=== PATIENT | female | born 1940 | race Caucasian/White ===

== ENCOUNTER 2016-09-22 12:49 | Inpatient (IN) | payer OTHER, MEDICARE ==
[~2016-09-22] VITALS: Ht 157.5 cm; Wt 83.4 kg
[~2016-09-22 12:49] MED LIST: ADVAIR 500/501 DISK IH; ADVAIR HFA120 INHAL1 IH; AMBIEN10 MG PO; ARMOUR THYROID60 M1 PO; AZITHROMYCIN250 MG1 PO; CEFDINIR300 MG PO; ERGOCALCIF50000 UNIT PO; GLIMEPIRIDE1 MG PO; HYDROCODON-ACE1 EAC7 PO; IRON325 M1 PO; LOSARTAN POTASS50 MG PO; LOVENOX40 MG/0.4 SC; MUCINEX600 MG PO; NORVASC5 MG PO; OMEPRAZOLE20 MG PO; OXYCODONE-APAP1 EACH PO; PRAVASTATIN SOD40 MG PO; PREDNISONE20 MG PO; PREMARIN0.625 MG PO; PREVACID30 MG PO; PROAIR HFA8.5 GM IH; PROZAC40 MG PO; TRIAMTERENE-HC1 EACH PO; TUDORZA PRESS400 MCG IH; VIMOVO 500-201 EAC1 PO; VITAMIN D50000 UNI4 PO; ZOCOR20 MG PO
[2016-09-22 14:12] LABS: MEAN PLAT.VOLUME 10.9 uM^3 (9.5-12.4); PLATELET COUNT 292 K/uL (156-360)
[2016-09-22 14:20] LABS: HEMATOCRIT 31.5 % (36.0-46.0); MCH 26.6 PG (29.0-34.0); MCHC 31.1 G/DL (30.0-36.0); MCV 85.6 FL (83-99); RBC DIS.WIDTH-SD 42.5 % (39-53); RED BLOOD COUNT 3.68 M/uL (3.80-5.20)
[2016-09-22 14:21] LABS: CHLORIDE 98 mEq/L (99-109); POTASSIUM 3.5 mEq/L (3.7-5.4); SODIUM 136 mEq/L (136-147); WHITE BLOOD COUNT 35.6 K/uL (4.1-10.2)
[2016-09-22 14:24] LABS: GLUCOSE 211 mg/dL (70-99)
[2016-09-22 14:25] LABS: ANION GAP 14 MEQ/L (2-14); TOTAL BILIRUBIN 0.5 mg/dL (0.0-1.0)
[2016-09-22 14:27] LABS: ALKALINE PHOSPHATASE 145 IU/L (3-129); GFR ESTIMATE (CALCULATED) 51 mL/min/
[2016-09-22 14:28] LABS: UREA NITROGEN (BUN) 17 mg/dL (9-23)
[2016-09-22 15:44] LABS: ADD MIUA? YES; BILIRUBIN NEGATIVE; BLOOD NEGATIVE; COLOR AMBER ((YELLOW)); GLUCOSE (STRIP) 50; KETONES NEGATIVE; LEUKOCYTES NEGATIVE; NITRITE NEGATIVE; PROTEIN (STRIP) 100; UROBILINOGEN 0.2 MG/DL (0.2-1.0)
[2016-09-22 15:50] LABS: BACTERIA RARE /HPF; EPITHELIAL CELLS 1+ /HPF; HYALINE CASTS 0-5 /LPF; MUCUS TRACE /LPF; RED BLOOD CELLS 0-5 /HPF (0-5); UCUL ADDED? NO; WHITE BLOOD CELLS 0-5 /HPF (0-5)
[2016-09-22] MEDS ORDERED: LEVO-T100 MCG PO (16:56)
[2016-09-22 17:46] LABS: EOSINOPHIL (%) 0 % (0-5); HEMATOLOGY COMMENT 1 SMEAR COMPATIBLE; IMMATURE GRANULOCYTE (%) 0.6 % (0.0-0.7); IMMATURE GRANULOCYTE COUNT 0.2 K/uL; LYMPHOCYTE COUNT 1.1 K/uL (1.0-2.8); MONOCYTE (%) 4.9 % (3-12); MONOCYTE COUNT 1.7 K/uL (0-0.8); NEUTROPHIL (%) 91.1 % (45-76); NEUTROPHIL COUNT 31.2 K/uL (1.8-6.4); USER ID NJV
[2016-09-22 18:12] LABS: INTER. NORMALIZED RATIO 1.3; PROTHROMBIN TIME 13.8 (9.2-11.2); PTT 32.5 (25-32)
[2016-09-22 23:31] VITALS: BP 126/69
[2016-09-23 04:09] VITALS: BP 131/72
[2016-09-23 06:23] LABS: HEMATOCRIT 28.5 % (36.0-46.0); MCH 27.2 PG (29.0-34.0); MCHC 31.2 G/DL (30.0-36.0); MCV 87.2 FL (83-99); PLATELET COUNT 265 K/uL (156-360); RBC DIS.WIDTH-CV 14.3 % (11.8-14.6); RBC DIS.WIDTH-SD 45.5 % (39-53); RED BLOOD COUNT 3.27 M/uL (3.80-5.20); WHITE BLOOD COUNT 29.3 K/uL (4.1-10.2)
[2016-09-23 06:46] LABS: ANION GAP 9 MEQ/L (2-14); CHLORIDE 101 MEQ/L (99-109); GFR ESTIMATE (CALCULATED) > 59 mL/min/; GLUCOSE 187 mg/dL (70-99); SAMPLE HEMOLYSIS CHECK 1; SAMPLE ICTERIC CHECK 0; SAMPLE LIPEMIA CHECK 0; SODIUM 136 MEQ/L (136-147); UREA NITROGEN (BUN) 20 mg/dL (9-23)
[2016-09-23 06:49] LABS: POTASSIUM 4.3 MEQ/L (3.7-5.4)
[2016-09-23 06:55] LABS: EOSINOPHIL (%) 0 % (0-5); IMMATURE GRANULOCYTE (%) 0.9 % (0.0-0.7); IMMATURE GRANULOCYTE COUNT 0.3 K/uL; LYMPHOCYTE COUNT 0.4 K/uL (1.0-2.8); MONOCYTE (%) 1.6 % (3-12); MONOCYTE COUNT 0.5 K/uL (0-0.8); NEUTROPHIL (%) 96.1 % (45-76); NEUTROPHIL COUNT 28.1 K/uL (1.8-6.4)
[2016-09-23 07:44] VITALS: BP 126/69
[2016-09-23 11:42] VITALS: BP 132/69
[2016-09-23 16:01] VITALS: BP 133/69
[2016-09-23 19:25] VITALS: BP 113/65
[2016-09-24 00:20] VITALS: BP 126/67
[2016-09-24 03:30] VITALS: BP 119/72
[2016-09-24 08:00] VITALS: BP 116/73
[2016-09-24 09:53] LABS: HEMATOCRIT 30.3 % (36.0-46.0); MCH 26.4 PG (29.0-34.0); MCHC 30.7 G/DL (30.0-36.0); MCV 86.1 FL (83-99); RBC DIS.WIDTH-CV 14.6 % (11.8-14.6); RBC DIS.WIDTH-SD 46.4 % (39-53); RED BLOOD COUNT 3.52 M/uL (3.80-5.20); WHITE BLOOD COUNT 29.9 K/uL (4.1-10.2)
[2016-09-24 10:10] LABS: MEAN PLAT.VOLUME 11.4 uM^3 (9.5-12.4)
[2016-09-24 10:12] LABS: PLATELET COUNT 383 K/uL (156-360)
[2016-09-24 10:27] LABS: ANION GAP 12 MEQ/L (2-14); CHLORIDE 104 MEQ/L (99-109); GFR ESTIMATE (CALCULATED) 57 mL/min/; GLUCOSE 254 mg/dL (70-99); POTASSIUM 4.3 MEQ/L (3.7-5.4); SAMPLE HEMOLYSIS CHECK 0; SAMPLE ICTERIC CHECK 0; SAMPLE LIPEMIA CHECK 0; SODIUM 139 MEQ/L (136-147)
[2016-09-24 10:28] LABS: UREA NITROGEN (BUN) 34 mg/dL (9-23)
[2016-09-24 12:00] VITALS: BP 115/63
[2016-09-24 16:00] VITALS: BP 116/58
[2016-09-24 20:46] VITALS: BP 111/65
[2016-09-25 04:05] VITALS: BP 128/56
[2016-09-25 08:00] VITALS: BP 126/69
[2016-09-25 09:36] LABS: HEMATOCRIT 28.5 % (36.0-46.0); MCH 26.9 PG (29.0-34.0); MCHC 31.2 G/DL (30.0-36.0); MCV 86.1 FL (83-99); MEAN PLAT.VOLUME 11.4 uM^3 (9.5-12.4); PLATELET COUNT 342 K/uL (156-360); RBC DIS.WIDTH-CV 14.7 % (11.8-14.6); RED BLOOD COUNT 3.31 M/uL (3.80-5.20)
[2016-09-25 09:39] LABS: WHITE BLOOD COUNT 18.7 K/uL (4.1-10.2)
[2016-09-25 09:50] LABS: ANION GAP 10 MEQ/L (2-14); CHLORIDE 102 MEQ/L (99-109); GFR ESTIMATE (CALCULATED) 57 mL/min/; GLUCOSE 264 mg/dL (70-99); POTASSIUM 3.6 MEQ/L (3.7-5.4); SAMPLE HEMOLYSIS CHECK 0; SAMPLE ICTERIC CHECK 0; SAMPLE LIPEMIA CHECK 0; SODIUM 138 MEQ/L (136-147); UREA NITROGEN (BUN) 30 mg/dL (9-23)
[2016-09-25 12:00] VITALS: BP 145/90
[2016-09-25 16:00] VITALS: BP 139/65
[2016-09-25 19:48] VITALS: BP 139/66
[2016-09-26 00:09] VITALS: BP 135/69
[2016-09-26 04:51] VITALS: BP 152/78
[2016-09-26 07:51] VITALS: BP 143/76
[2016-09-26 10:36] LABS: HEMATOCRIT 31.9 % (36.0-46.0); MCH 25.9 PG (29.0-34.0); MCHC 30.7 G/DL (30.0-36.0); MCV 84.4 FL (83-99); MEAN PLAT.VOLUME 11.2 uM^3 (9.5-12.4); PLATELET COUNT 374 K/uL (156-360); RBC DIS.WIDTH-CV 14.7 % (11.8-14.6); RBC DIS.WIDTH-SD 45.5 % (39-53); RED BLOOD COUNT 3.78 M/uL (3.80-5.20); WHITE BLOOD COUNT 14.5 K/uL (4.1-10.2)
[2016-09-26 11:38] VITALS: BP 147/81
[2016-09-26 15:03] VITALS: BP 144/79
[2016-09-26 20:04] VITALS: BP 132/66
[2016-09-27] VITALS (7 sets, daily range): BP systolic 131–148; BP diastolic 61–76
[2016-09-27 08:28] LABS: HEMATOCRIT 33.2 % (36.0-46.0); MCH 26.7 PG (29.0-34.0); MCHC 31.9 G/DL (30.0-36.0); MCV 83.6 FL (83-99); MEAN PLAT.VOLUME 11.3 uM^3 (9.5-12.4); PLATELET COUNT 418 K/uL (156-360); RBC DIS.WIDTH-CV 14.6 % (11.8-14.6); RBC DIS.WIDTH-SD 44.8 % (39-53); RED BLOOD COUNT 3.97 M/uL (3.80-5.20); WHITE BLOOD COUNT 14.7 K/uL (4.1-10.2)
[2016-09-27 08:52] LABS: ANION GAP 12 MEQ/L (2-14); CHLORIDE 95 MEQ/L (99-109); GFR ESTIMATE (CALCULATED) > 59 mL/min/; GLUCOSE 319 mg/dL (70-99); POTASSIUM 3.6 MEQ/L (3.7-5.4); SAMPLE HEMOLYSIS CHECK 0; SAMPLE ICTERIC CHECK 0; SAMPLE LIPEMIA CHECK 0; SODIUM 138 MEQ/L (136-147); UREA NITROGEN (BUN) 16 mg/dL (9-23)
[2016-09-28 04:11] VITALS: BP 155/84
[2016-09-28 07:29] VITALS: BP 142/64
[2016-09-28 09:27] LABS: HEMATOCRIT 36.7 % (36.0-46.0); MCHC 31.1 G/DL (30.0-36.0); MCV 83.6 FL (83-99); MEAN PLAT.VOLUME 10.8 uM^3 (9.5-12.4); PLATELET COUNT 412 K/uL (156-360); RBC DIS.WIDTH-CV 14.8 % (11.8-14.6); RBC DIS.WIDTH-SD 45.1 % (39-53); RED BLOOD COUNT 4.39 M/uL (3.80-5.20); WHITE BLOOD COUNT 18.2 K/uL (4.1-10.2)
[2016-09-28 10:04] LABS: EOSINOPHIL (%) 0 % (0-5); HEMATOLOGY COMMENT 1 SMEAR COMPATIBLE; IMMATURE GRANULOCYTE COUNT 0.7 K/uL; LYMPHOCYTE COUNT 0.8 K/uL (1.0-2.8); MONOCYTE (%) 4.3 % (3-12); MONOCYTE COUNT 0.8 K/uL (0-0.8); NEUTROPHIL (%) 87.3 % (45-76); NEUTROPHIL COUNT 15.9 K/uL (1.8-6.4); USER ID CCL
[2016-09-28 10:40] LABS: ANION GAP 14 MEQ/L (2-14); CHLORIDE 91 MEQ/L (99-109); GFR ESTIMATE (CALCULATED) > 59 mL/min/; GLUCOSE 314 mg/dL (70-99); POTASSIUM 3.6 MEQ/L (3.7-5.4); SAMPLE HEMOLYSIS CHECK 0; SAMPLE ICTERIC CHECK 0; SAMPLE LIPEMIA CHECK 0; SODIUM 137 MEQ/L (136-147); UREA NITROGEN (BUN) 18 mg/dL (9-23)
[2016-09-28 12:00] VITALS: BP 150/67
[2016-09-28 15:24] VITALS: BP 138/89
[2016-09-28 19:19] VITALS: BP 132/66
[2016-09-28 22:36] LABS: POINT-OF-CARE METER ID UU14174225
[2016-09-29 00:12] VITALS: BP 141/82
[2016-09-29 03:40] VITALS: BP 138/69
[2016-09-29 07:06] LABS: HEMATOCRIT 34.7 % (36.0-46.0); MCHC 31.7 G/DL (30.0-36.0); MCV 85.3 FL (83-99); MEAN PLAT.VOLUME 11.3 uM^3 (9.5-12.4); PLATELET COUNT 309 K/uL (156-360); RBC DIS.WIDTH-CV 15.2 % (11.8-14.6); RBC DIS.WIDTH-SD 46.5 % (39-53); RED BLOOD COUNT 4.07 M/uL (3.80-5.20); WHITE BLOOD COUNT 14.5 K/uL (4.1-10.2)
[2016-09-29 07:32] LABS: ANION GAP 11 MEQ/L (2-14); CHLORIDE 96 MEQ/L (99-109); GFR ESTIMATE (CALCULATED) > 59 mL/min/; GLUCOSE 178 mg/dL (70-99); POTASSIUM 3.3 MEQ/L (3.7-5.4); SAMPLE HEMOLYSIS CHECK 0; SAMPLE ICTERIC CHECK 0; SAMPLE LIPEMIA CHECK 0; SODIUM 139 MEQ/L (136-147); UREA NITROGEN (BUN) 17 mg/dL (9-23)
[2016-09-29 07:43] LABS: EOSINOPHIL (%) 0.9 % (0-5); EOSINOPHIL COUNT 0.1 K/uL (0-0.3); IMMATURE GRANULOCYTE (%) 4.6 % (0.0-0.7); IMMATURE GRANULOCYTE COUNT 0.7 K/uL; LYMPHOCYTE COUNT 1.5 K/uL (1.0-2.8); MONOCYTE (%) 3.9 % (3-12); MONOCYTE COUNT 0.6 K/uL (0-0.8); NEUTROPHIL (%) 80.4 % (45-76); NEUTROPHIL COUNT 11.7 K/uL (1.8-6.4)
[2016-09-29 07:50] LABS: HEMATOLOGY COMMENT 1 SMEAR COMPATIBLE; USER ID STC
[2016-09-29 07:53] VITALS: BP 146/76
[2016-09-29 09:03] LABS: POINT-OF-CARE METER ID UU14174225
[2016-09-29 11:40] VITALS: BP 148/74
[2016-09-29 12:14] LABS: POINT-OF-CARE METER ID UU14188625
[2016-09-29] MEDS ORDERED: CEFTRIAXONE2 G1 IV (12:52)
[2016-09-29] MEDS ORDERED: FLAGYL500 MG PO (12:52)
[2016-09-29 15:07] VITALS: BP 125/71
== END 2016-09-29 17:15 | disposition home or self-care (01) | DRG 872 ==
LOC: EME 12:49 → EDOF 22:11 → 5SOUTH 22:11
PROVIDERS: Hospitalist; Student in an Organized Health Care Education/Training Program
PROC: 0W9G30Z Drainage of Peritoneal Cavity with Drainage Device, Percutaneous Approach (ICD-10-PCS; principal; 2016-09-22)
DX: A41.9 Sepsis, unspecified organism (principal); K57.80 Diverticulitis of intestine, part unspecified, with perforation and abscess without bleeding; J44.1 Chronic obstructive pulmonary disease with (acute) exacerbation; J96.10 Chronic respiratory failure, unspecified whether with hypoxia or hypercapnia; I10 Essential (primary) hypertension; G89.29 Other chronic pain; E03.9 Hypothyroidism, unspecified; D72.829 Elevated white blood cell count, unspecified; E11.65 Type 2 diabetes mellitus with hyperglycemia; K42.9 Umbilical hernia without obstruction or gangrene; Z98.1 Arthrodesis status; Z99.81 Dependence on supplemental oxygen; Z96.659 Presence of unspecified artificial knee joint; Z87.891 Personal history of nicotine dependence
CPT/HCPCS: 10030; 71260; 74177; 76937; 80048; 80053; 81003; 82948; 83605; 85025; 85027; 85610; 85730; 87040; 87070; 87075; 87076; 87077; 87177; 87185; 87186; 87205; 87329; 87493; 94640; 94640 76; 94760; 94799; 97530 GO; 99202; 99281; 99285; C1769; J0696; J1170; J1450; J1644; J1815; J1956; J2405; J2920; J2930; J3010; J7030; J7050; J7512; S0028; S0030

== ENCOUNTER → 2016-10-08 | Outpatient (CLI) | payer OTHER, MEDICARE ==
[~2016-10-08] MED LIST changes: +ACETAMINOPHEN325 M3 PO; +CEFTRIAXONE2 G1 IV; +FLAGYL500 MG PO; +LEVO-T100 MCG PO
== END | disposition home or self-care (01) ==
LOC: RAD 08:30
PROC: 0D9W30Z Drainage of Peritoneum with Drainage Device, Percutaneous Approach (ICD-10-PCS; principal; 2016-10-08)
DX: K57.80 Diverticulitis of intestine, part unspecified, with perforation and abscess without bleeding (principal)
CPT/HCPCS: 74177; 77012

== ENCOUNTER → 2017-02-04 | Outpatient (CLI) | payer OTHER, MEDICARE | END | disposition home or self-care (01) | LOC: RAD 16:00 | DX: R93.5 Abnormal findings on diagnostic imaging of other abdominal regions, including retroperitoneum (principal); K76.89 Other specified diseases of liver; N28.1 Cyst of kidney, acquired; R82.90 Unspecified abnormal findings in urine; R50.9 Fever, unspecified | CPT/HCPCS: 74177 ==